=== PATIENT | male | born 1985 | race Two or more races ===

== ENCOUNTER 2021-11-16 10:06 | Inpatient (IN) | payer OTHER ==
[~2021-11-16] VITALS: Ht 177.8 cm; Wt 90.7 kg
[2021-11-16] MEDS ORDERED: PEPCID AC20 MG PO (10:51)
[2021-11-16] MEDS ORDERED: PRILOSEC OTC20 MG PO (10:52)
--- NOTE | 2021-11-16 10:52 | NUR ---
SE RECIBE PTE ALERTA Y ORIENTADO X3,REFIERE TENER DOLOR ABDOMINAL SE LE IRRADIA HACIA EL LADO DERECHO.
--- NOTE | 2021-11-16 13:50 | NUR ---
SE RECIBE PACIENTE MASCULINO DE 36 Y/O ALERTA Y ORIENTADO X3 SE COLECTAN MUESTRAS DE [place], MUESTRA DE COVID Y SE ADMINISTRAN MEDICAMENTOS. PENDIENTE A SONOGRAMA ABDOMINAL. SE ORIENTA A PACIENTE SOBRE NORMAS GENERALES DE LA UNIDAD Y CONTINUIDAD DE TRATAMIENTO.
--- NOTE | 2021-11-16 16:09 | NUR ---
PTE ALERTA Y ORIENTADO X3 ESFERAS EN RODRIGO CON BARANDAS ELEVADAS,EN COMPANIA DE FAMILIAR,AREA DE VENOPUNCION PATENTE Y JOHNATHON DE EDEMA CON FLUIDOS DE MANTENIMIENTO BAJANDO SIN DIFICULTAD,SE ORIENTA SOBRE DIETA NPO.PENDIENTE A EVALUACION DE DR HAUSER.
== END 2021-11-17 21:43 | disposition home or self-care (01) | DRG 446 ==
LOC: ER 10:06 → SURH 19:38
PROVIDERS: ADMIT Internal Medicine; ATTEND Internal Medicine
PROC: BW40ZZZ Ultrasonography of Abdomen (ICD-10-PCS; principal; 2021-11-16)
PROC: BF37ZZZ Magnetic Resonance Imaging (MRI) of Pancreas (ICD-10-PCS; 2021-11-16)
DX: K80.00 Calculus of gallbladder with acute cholecystitis without obstruction (principal); Z20.822 Contact with and (suspected) exposure to COVID-19

== ENCOUNTER 2021-11-30 06:39 | Inpatient (IN) | payer OTHER ==
[~2021-11-30] VITALS: Ht 177.8 cm; Wt 89.4 kg
[~2021-11-30 06:39] MED LIST: PEPCID AC20 MG PO; PRILOSEC OTC20 MG PO
== END 2021-12-01 12:35 | disposition home or self-care (01) | DRG 419 ==
LOC: ER 06:39 → SEC-K 11:11 → O/R 15:30
PROVIDERS: ADMIT Surgery; ATTEND Surgery
PROC: BF03YZZ Plain Radiography of Gallbladder and Bile Ducts using Other Contrast (ICD-10-PCS; 2021-11-30)
PROC: 0FT44ZZ Resection of Gallbladder, Percutaneous Endoscopic Approach (ICD-10-PCS; principal; 2021-11-30 14:00)
DX: K80.00 Calculus of gallbladder with acute cholecystitis without obstruction (principal); K80.10 Calculus of gallbladder with chronic cholecystitis without obstruction; Z20.822 Contact with and (suspected) exposure to COVID-19